=== PATIENT | female | born 1950 | race Caucasian/White ===

== ENCOUNTER 2022-12-22 12:29 | Outpatient (AMB) | payer MEDICARE, SELFPAY ==
--- NOTE | 2022-12-22 12:33 | A.OFFVIS_ITS ---
Intake VS Expanded 12/22/22 12:34 12/24/22 10:04 Height 5 ft 6.5 in 5 ft 6.5 in Weight 191 lb 9.307 oz 192 lb BMI 30.5 30.5 Intake Visit Reasons: TY1DM hypertension/LVM Medication List - Last Reconciled 12/24/[address], LDN glipizide 10 mg PO BID insulin glargine (Lantus Solostar U-100 Insulin) 18 units subcut QAM insulin lispro (Humalog KwikPen (U-100) Insulin) 4 units subcut DAILY metformin ER 500 mg orally 2 tabs twice a day; HPI Nutrition Presentation Details Pt presents for MNT for T1DM /SANDHYA. Pt was referred by Dr. 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 from [facility] Pt reports typically having 3 meal/d, varies from eating out to home made meals typical meal intake 9-10 am B: 2 c coffee /milk L: cereal with milk or toast 1 slice/butter, jelly, milk d: starch/veg/protein, wine snacks on fruits cracker with peanut butter Physical activity: sedentary EOTH: 2 servings/ [email or web address] Currently taking Lantus 18 units /day Humalog/Lyumvev 4 units at supper Glipizider 10 mg twice/day Metformin ER 500 mg 2 tabs twice/day MVI ASA 81 mg/d Pt reports bg today at 121 ETL-Dlwctin-Yv.Jeor Equation Height 5 ft 6.5 in Weight 192 lb Resting Metabolic Rate 1420.31 Calculated Activity Level Sedentary Calories Needed to Maintain Weight 1704.37 Diagnosis Nutrition problem #1 food nutri know defi As related to (etiology) #1 diagnosis As evidenced by (sign/symptom) #1 knowledge deficit of diet (related to carb/insulin ) Monitoring/Goals Nutrition problem monitoring level of knowledge/skill, total PRO intake, total CHO intake and oral fluids Nutrition goal/outcome list 3 CHO foods Outcome progress verbalized understanding Learning/Education Readiness to learn good Stages of change preparation Educational materials provided Yes (meal planning , intro to carb counting concept) Most Recent Diabetes Results: No Data to Display Assessment & Plan Assessment & Plan (1) T2DM (type 2 diabetes mellitus): Code(s): E11.9 - Type 2 diabetes mellitus without complications Plan: wt: 87 kg Est kcal needs as per MSJ: 1700 (40% carb, 30% protein/fat) Est fluid needs as per 25-30 ml/d: 2200 Est prot per day as per 1 g/kg bw: 87 Recommend fiber intake : 8-10 g per day and gradually increase to 25-28 g per day for women and 35-38 g for men or as tolerated Recommend sodium intake per day : less than 2000 mg Educated patient on: ( R = reviewed V = verbalizes understanding N/R = needs review N/A = not applicable * Food sources of carbohydrate, adequate serving sizes and its role in various health conditions: R * Differences between complex carbohydrates a simple carbohydrates, role of fiber in diet: R * Differences between types of fats and role in diet (mono on saturated fat fatty acids, saturated fatty acids, trans fats): NR * Food sources of sodium in salt and healthy modifications for heart health in kidney health: NR * Healthy plate method concept: R * Physical activity: Benefits a precaution: R * Hypoglycemia protocol (rule of 15): V * Dietary prevention of Hyperglycemia: R V Patient Instructions: Follow healthy plate method at dinner work on reducing total carb to 60 g at meal and 20 g as snack Keep hydrated by having water with meal/snacks follow rule of 15 if developing low blood sugars (treat blood sugar that is below 70 with 15 g of carbohydrates (1/2 cup of juice or 3 glucose tablets) re test blood sugar 15 minute after and repeat treatment if blood sugar continues below 70. Contact your doctor to inform any low blood sugar episodes for further asessment. Coding Level of Care Code Nutr Indiv Intake (07920) Diagnoses T2DM (type 2 diabetes mellitus) E11.9 Time Spent (min) 30
[2022-12-22 12:34] VITALS: BMI 30.5
[2022-12-24 10:04] VITALS: BMI 30.5
== END 2022-12-22 13:17 | disposition home or self-care (01) ==
PROVIDERS: Visit Provider Dietitian, Registered
DX: E11.9 Type 2 diabetes mellitus without complications (principal)

== ENCOUNTER → 2022-12-22 12:29 | Outpatient (BNVA) | payer MEDICARE, SELFPAY | PROVIDERS: Visit Provider Dietitian, Registered | DX: E11.9 Type 2 diabetes mellitus without complications (principal) | CPT/HCPCS: 97802 ==

== ENCOUNTER 2023-02-02 12:40 | Outpatient (AMB) | payer MEDICARE, SELFPAY ==
--- NOTE | 2023-02-02 12:43 | A.OFFVIS_ITS ---
Intake VS Expanded 02/02/23 12:44 Height 5 ft 6.2 in Weight 192 lb 3.889 oz BMI 30.8 Intake Visit Reasons: TY1DM hypertension/lvm HPI Nutrition Presentation Details Pt presents for MNT f/u f for Type 1 DM/SANDHYA Pt reports having difficulties with Dexcome 6 GMM, reports having difficulties with connectivity or not sensing. The Pt was advised to contact [employer] and explain situation (Pt did not havedexcome package information with her) Pt reports doing well, has challenges understanding carbohydrate counting concept. Reports having 2-3 meals per day and often eating out at restaurants Today will will review healthy plate method concept. Most Recent Diabetes Results: No Data to Display Assessment & Plan Assessment & Plan (1) T2DM (type 2 diabetes mellitus): Code(s): E11.9 - Type 2 diabetes mellitus without complications Plan: wt: 87 kg Est kcal needs as per MSJ: 1700 (40% carb, 30% protein/fat) Est fluid needs as per 25-30 ml/d: 2200 Est prot per day as per 1 g/kg bw: 87 Recommend fiber intake : 8-10 g per day and gradually increase to 25-28 g per day for women and 35-38 g for men or as tolerated Recommend sodium intake per day : less than 2000 mg Educated patient on: ( R = reviewed V = verbalizes understanding N/R = needs review N/A = not applicable * Food sources of carbohydrate, adequate serving sizes and its role in various health conditions: R * Differences between complex carbohydrates a simple carbohydrates, role of fiber in diet: R * Differences between types of fats and role in diet (mono on saturated fat fatty acids, saturated fatty acids, trans fats): NR * Food sources of sodium in salt and healthy modifications for heart health in kidney health: NR * Healthy plate method concept: R * Physical activity: Benefits a precaution: R * Hypoglycemia protocol (rule of 15): V * Dietary prevention of Hyperglycemia: R V Patient Instructions: Follow healthy plate method at dinner Keep a food record and bring with you to your next appt for review Coding Level of Care Code Nutr Indiv Subseq ([id number]) Diagnoses T2DM (type 2 diabetes mellitus) E11.9 Time Spent (min) 20
[2023-02-02 12:44] VITALS: BMI 30.8
== END 2023-02-02 13:12 | disposition home or self-care (01) ==
PROVIDERS: Visit Provider Dietitian, Registered
DX: E11.9 Type 2 diabetes mellitus without complications (principal)

== ENCOUNTER → 2023-02-02 12:40 | Outpatient (BNVA) | payer MEDICARE, SELFPAY | PROVIDERS: Visit Provider Dietitian, Registered | DX: E11.9 Type 2 diabetes mellitus without complications (principal) | CPT/HCPCS: 97803 ==

== ENCOUNTER 2023-03-16 12:37 | Outpatient (AMB) | payer MEDICARE, SELFPAY ==
[2023-03-16 12:41] VITALS: BMI 30.9
--- NOTE | 2023-03-16 12:41 | A.OFFVIS_ITS ---
Intake VS Expanded 03/16/23 12:41 Height 5 ft 6.2 in Weight 192 lb 14.472 oz BMI 30.9 Intake Visit Reasons: T1DM/SANDHYA/CONFIRMED HPI Nutrition Presentation Details Pt presents for MNT follow-up for type 2 diabetes Patient reports following up with workers compensation coordinator very closely, reports she is currently taking Lantus 18 units a day and 4-6 units of Humalog eggs with lunch or dinner since she typically has 2 meals a day. Patient is having difficulties with with blood glucose clarity application and reception clerk was weak during this appointment. Pt was advised to contact [employer] , ext [phone] for further assistance Pt reports having 2 meals/day First meal consist of B: cereal /milk/fruit (cereals are lower sugar options and fiber rich : cheerios/bran flakes as ex, choosing berries as fruit and having whole milk) dinner: starches/ protein/veg/ wine snacks on ice cream, cookies , sometimes fruits Pt reports having no questions. Today will reinforce reducing on processed snacks Most Recent Diabetes Results: No Data to Display Assessment & Plan Assessment & Plan (1) T2DM (type 2 diabetes mellitus): Code(s): E11.9 - Type 2 diabetes mellitus without complications Plan: wt: 87 kg Est kcal needs as per MSJ: 1700 (40% carb, 30% protein/fat) Est fluid needs as per 25-30 ml/d: 2200 Est prot per day as per 1 g/kg bw: 87 Recommend fiber intake : 8-10 g per day and gradually increase to 25-28 g per day for women and 35-38 g for men or as tolerated Recommend sodium intake per day : less than 2000 mg Educated patient on: ( R = reviewed V = verbalizes understanding N/R = needs review N/A = not applicable * Food sources of carbohydrate, adequate serving sizes and its role in various health conditions: R * Differences between complex carbohydrates a simple carbohydrates, role of fiber in diet: R * Differences between types of fats and role in diet (mono on saturated fat fatty acids, saturated fatty acids, trans fats): R, basic low fat * Food sources of sodium in salt and healthy modifications for heart health in kidney health: NR * Healthy plate method concept: R * Physical activity: Benefits a precaution: R * Hypoglycemia protocol (rule of 15): V * Dietary prevention of Hyperglycemia: R V Patient Instructions: Work on reducing on processed snacks /reducing on total sugars/carbs consumed as snack to less than 20 g carbs -Try yogurt in place of ice cream after the meal (see list of options) -choose 1/2 banana and peanut butter in place of cookies - see list of snack options Pt agreed to join diabetes zoom classes for additional education /support at [facility] Coding Level of Care Code Nutr Indiv Subseq ([id number]) Diagnoses T2DM (type 2 diabetes mellitus) E11.9 Time Spent (min) 30
== END 2023-03-16 13:28 | disposition home or self-care (01) ==
PROVIDERS: Visit Provider Dietitian, Registered
DX: E11.9 Type 2 diabetes mellitus without complications (principal)

== ENCOUNTER → 2023-03-16 12:37 | Outpatient (BNVA) | payer MEDICARE, SELFPAY | PROVIDERS: Visit Provider Dietitian, Registered | DX: E11.9 Type 2 diabetes mellitus without complications (principal) | CPT/HCPCS: 97803 ==

== ENCOUNTER 2023-05-04 12:38 | Outpatient (AMB) | payer MEDICARE, SELFPAY ==
[2023-05-04 12:44] VITALS: BMI 33.7
--- NOTE | 2023-05-04 12:44 | A.OFFVIS_ITS ---
Intake VS Expanded 05/04/23 12:44 Height 5 ft 6.2 in Weight 209 lb 14.081 oz BMI 33.7 Intake Visit Reasons: T2DM/LVM HPI Nutrition Presentation Details Pt presents for MNT f/u for T2DM/SANDHYA Pt is on Lantus 18 units/day and Humalog 4-6 units with meals, 2 meals/day Pt reports noticing elevated bg after meals - not able to download bg information Pt reports noticing bg > 200 after having cereal with milk in the morning, Most Recent Diabetes Results: No Data to Display Assessment & Plan Assessment & Plan (1) T2DM (type 2 diabetes mellitus): Code(s): E11.9 - Type 2 diabetes mellitus without complications Plan: wt: 87 kg, 95 kg (04/2023) Est kcal needs as per MSJ: 1700 (40% carb, 30% protein/fat) Est fluid needs as per 25-30 ml/d: 2200 Est prot per day as per 1 g/kg bw: 87 Recommend fiber intake : 8-10 g per day and gradually increase to 25-28 g per day for women and 35-38 g for men or as tolerated Recommend sodium intake per day : less than 2000 mg Educated patient on: ( R = reviewed V = verbalizes understanding N/R = needs review N/A = not applicable * Food sources of carbohydrate, adequate serving sizes and its role in various health conditions: R * Differences between complex carbohydrates a simple carbohydrates, role of fiber in diet: R * Differences between types of fats and role in diet (mono on saturated fat fatty acids, saturated fatty acids, trans fats): R, basic low fat * Food sources of sodium in salt and healthy modifications for heart health in kidney health: NR * Healthy plate method concept: R * Physical activity: Benefits a precaution: R * Hypoglycemia protocol (rule of 15): V * Dietary prevention of Hyperglycemia: R V Patient Instructions: Work on increasing physical activity - walk 10 minutes 3 times a day (or april in place ) Reduce on pastries/cookies/ sugar added to the foods Switch to lower sugar cereals (cheerios, bran flakes in place of raisin bran) and alternate between breakfast sandwich and cereal - see blood sugar results and compare Coding Level of Care Code Nutr Indiv Subseq ([id number]) Diagnoses T2DM (type 2 diabetes mellitus) E11.9 Time Spent (min) 30
== END 2023-05-04 13:22 | disposition home or self-care (01) ==
PROVIDERS: Visit Provider Dietitian, Registered
DX: E11.9 Type 2 diabetes mellitus without complications (principal)

== ENCOUNTER → 2023-05-04 12:38 | Outpatient (BNVA) | payer MEDICARE, SELFPAY | PROVIDERS: Visit Provider Dietitian, Registered | DX: E11.9 Type 2 diabetes mellitus without complications (principal); Z79.4 Long term (current) use of insulin | CPT/HCPCS: 97803 ==

== ENCOUNTER 2023-06-19 12:35 | Outpatient (AMB) | payer MEDICARE, SELFPAY ==
[2023-06-19 12:45] VITALS: BMI 30.5
--- NOTE | 2023-06-19 12:45 | A.OFFVIS_ITS ---
Intake VS Expanded 06/19/23 12:45 Height 5 ft 6.5 in Weight 191 lb 9.307 oz BMI 30.5 Intake Visit Reasons: T2DM/LVM HPI Nutrition Presentation Details Pt presents for MNT f/u for T2DM . Pt was [facility] by [facility] Pt reports understanding balancing meals concepts: protein/non starchy veg/starches Pt does not carb count Unable to download glucose sensor - Pt uses phone however is not able to share info, Pt reports working on reducing on pastries and choosing lower salt foods Pt reports blood sugar get elevated after having breakfast: typical breakfast is cereal with fruit and milk - reports varying cereals : raisin bran or cheerios the coffee lunch/dinner: starch/protein/veg/ water or tea snack: yogurt or crackers with peanut butter Most Recent Diabetes Results: No Data to Display Assessment & Plan Assessment & Plan (1) T2DM (type 2 diabetes mellitus): Code(s): E11.9 - Type 2 diabetes mellitus without complications Plan: wt: 87 kg, 95 kg (04/2023), 87 kg (05/2023) Est kcal needs as per MSJ: 1700 (40% carb, 30% protein/fat) Est fluid needs as per 25-30 ml/d: 2200 Est prot per day as per 1 g/kg bw: 87 Recommend fiber intake : 8-10 g per day and gradually increase to 25-28 g per day for women and 35-38 g for men or as tolerated Recommend sodium intake per day : less than 2000 mg Educated patient on: ( R = reviewed V = verbalizes understanding N/R = needs review N/A = not applicable * Food sources of carbohydrate, adequate serving sizes and its role in various health conditions: R * Differences between complex carbohydrates a simple carbohydrates, role of fiber in diet: R * Differences between types of fats and role in diet (mono on saturated fat fatty acids, saturated fatty acids, trans fats): R, basic low fat * Food sources of sodium in salt and healthy modifications for heart health in kidney health: R * Healthy plate method concept: R * Physical activity: Benefits a precaution: R * Hypoglycemia protocol (rule of 15): V * Dietary prevention of Hyperglycemia: R V Patient Instructions: Alternate breakfasts: have egg sandw on whole wheat bread or Russian muffin (30 g carbs) one day, choose bran cereal instead of raisin bran cereal or lesser amount of sugar , other days have 1 cup of fruit, 1/2 Russian muffin and eggs omelette with turkey (45 g carb) Try lower carb meal options at dinner (reduce portion of starch and mix with non starchy vegetables example: cauliflower mashed with potato, or cauliflower rice or choose 2 vegetable and a protein and cup of milk, keep hydrated by having water, decaf tea with meals continue working on reducing on high sugar foods (pastries, cookies, etc, read the food labels, opt for lower carb options example yogurt bar vs ice cream Keep physically active start with 10 minutes and gradually increase to 15 min as able daily unless otherwise specified by doctor Coding Level of Care Code Nutr Indiv Subseq ([id number]) Diagnoses T2DM (type 2 diabetes mellitus) E11.9 Time Spent (min) 30
== END 2023-06-19 13:13 | disposition home or self-care (01) ==
LOC: HO.ENCR 12:49
PROVIDERS: Visit Provider Dietitian, Registered
DX: E11.9 Type 2 diabetes mellitus without complications (principal)

== ENCOUNTER → 2023-06-19 12:49 | Outpatient (BNVA) | payer MEDICARE, SELFPAY | PROVIDERS: Visit Provider Dietitian, Registered | DX: E11.9 Type 2 diabetes mellitus without complications (principal) | CPT/HCPCS: 97803 ==

== ENCOUNTER 2023-08-21 12:39 | Outpatient (AMB) | payer MEDICARE, OTHER, SELFPAY ==
[2023-08-21 12:43] VITALS: BMI 29.6
--- NOTE | 2023-08-21 12:43 | A.OFFVIS_ITS ---
VS Expanded 08/21/23 12:43 Height 5 ft 6.5 in Weight 186 lb 4.65 oz BMI 29.6 Intake Visit Reasons: T2DM/LVM Nutrition Presentation Details: Pt presents for MNT for T2DM Pt utilizing glucose sensor char dust cleaner and salvager and BG for the past 7 days : 45% in range, 29% high and 26 % very high range Pt reports working on reducing on pastries and has noticed improvement in blood sugars, noted also weight loss Pt reports typically having coffee 8-10 am coffee with diet sugar and cream 1pm cereal with milk , choosing low sugar cereals 6 pm dinner: potato/beef/carrots, milk snack: working on reducing on pastries water 8 oz /day fruits: 0-1/d ve servings/d dairy: 2-3 servingd prot: 8-10 oz/d, fish 1 x/wk BS Monitoring Most Recent Diabetes Results: No Data to Display Assessment & Plan Assessment & Plan (1) T2DM (type 2 diabetes mellitus): Code(s): E11.9 - Type 2 diabetes mellitus without complications Category: Medical Plan: wt: 87 kg, 95 kg (04/2023), 87 kg (05/2023), 84kg (07/2023) Est kcal needs as per MSJ: 1700 (40% carb, 30% protein/fat) Est fluid needs as per 25-30 ml/d: 2200 Est prot per day as per 1 g/kg bw: 87 Recommend fiber intake : 8-10 g per day and gradually increase to 25-28 g per day for women and 35-38 g for men or as tolerated Recommend sodium intake per day : less than 2000 mg Educated patient on: ( R = reviewed V = verbalizes understanding N/R = needs review N/A = not applicable * Food sources of carbohydrate, adequate serving sizes and its role in various health conditions: R * Differences between complex carbohydrates a simple carbohydrates, role of fiber in diet: R * Differences between types of fats and role in diet (mono on saturated fat fatty acids, saturated fatty acids, trans fats): R, basic low fat * Food sources of sodium in salt and healthy modifications for heart health in kidney health: R * Healthy plate method concept: R * Physical activity: Benefits a precaution: R * Hypoglycemia protocol (rule of 15): V * Dietary prevention of Hyperglycemia: R V Patient Instructions: * include water with meals and snack, gradually increasing to 20-40 oz * have a mid afternoon snack (2 -3 peanut butter crackers, or fruit or yogurt * Keep working on reducing on sugars from pastries/cookies and similar foods at night * keep physically active as able Coding Level of Care Code Nutr Indiv Subseq ([id number]) Diagnoses T2DM (type 2 diabetes mellitus) E11.9 Time Spent (min) 30
== END 2023-08-21 13:14 | disposition home or self-care (01) ==
PROVIDERS: Visit Provider Dietitian, Registered
DX: E11.9 Type 2 diabetes mellitus without complications (principal)

== ENCOUNTER → 2023-08-21 12:39 | Outpatient (BNVA) | payer MEDICARE, SELFPAY | PROVIDERS: Visit Provider Dietitian, Registered | DX: E11.9 Type 2 diabetes mellitus without complications (principal); Z71.3 Dietary counseling and surveillance | CPT/HCPCS: 97803 ==

== ENCOUNTER 2023-10-16 12:37 | Outpatient (AMB) | payer MEDICARE, SELFPAY ==
--- NOTE | 2023-10-16 12:41 | A.OFFVIS_ITS ---
VS Expanded 10/16/23 12:42 Height 5 ft 6.5 in Weight 187 lb 6.287 oz BMI 29.8 Intake Visit Reasons: T2DM/CONFIRMED Nutrition Presentation Details: Pt presents for MNT for T2DM Pt reports working on diet modification, reducing on sugars/pastries physical activity: sedentary BS Monitoring Most Recent Diabetes Results: No Data to Display Assessment & Plan Assessment & Plan (1) T2DM (type 2 diabetes mellitus): Code(s): E11.9 - Type 2 diabetes mellitus without complications Category: Medical Plan: wt: 87 kg, 95 kg (04/2023), 87 kg (05/2023), 84kg (07/2023), 85 kg (09/2023) Est kcal needs as per MSJ: 1700 (40% carb, 30% protein/fat) Est fluid needs as per 25-30 ml/d: 2200 Est prot per day as per 1 g/kg bw: 87 Recommend fiber intake : 8-10 g per day and gradually increase to 25-28 g per day for women and 35-38 g for men or as tolerated Recommend sodium intake per day : less than 2000 mg Educated patient on: ( R = reviewed V = verbalizes understanding N/R = needs review N/A = not applicable * Food sources of carbohydrate, adequate serving sizes and its role in various health conditions: R, V * Differences between complex carbohydrates a simple carbohydrates, role of fiber in diet: R * Differences between types of fats and role in diet (mono on saturated fat fat ty acids, saturated fatty acids, trans fats): R, basic low fat * Food sources of sodium in salt and healthy modifications for heart health in kidney health: R * Healthy plate method concept: R * Physical activity: Benefits a precaution: R * Hypoglycemia protocol (rule of 15): V * Dietary prevention of Hyperglycemia: R V Patient Instructions: Engage in physical activity, chair exercises or walking as able Have yogurt in place of pastries , working on reducing on sugars Reduce carb at meal to less than 60 g by following healthy plate method, Coding Level of Care Code Nutr Indiv Subseq ([id number]) Diagnoses T2DM (type 2 diabetes mellitus) E11.9 Time Spent (min) 25
[2023-10-16 12:42] VITALS: BMI 29.8
== END 2023-10-16 13:26 | disposition home or self-care (01) ==
PROVIDERS: Visit Provider Dietitian, Registered
DX: E11.9 Type 2 diabetes mellitus without complications (principal)

== ENCOUNTER → 2023-10-16 12:37 | Outpatient (BNVA) | payer MEDICARE, SELFPAY | PROVIDERS: Visit Provider Dietitian, Registered | DX: E11.9 Type 2 diabetes mellitus without complications (principal); Z71.3 Dietary counseling and surveillance | CPT/HCPCS: 97803 ==